=== PATIENT | female | born 1965 | race Caucasian/White ===

== ENCOUNTER 2017-06-11 18:34 | Inpatient (IN) | payer OTHER ==
[2017-06-11 21:34] LABS: ALANINE AMINOTRANSFERASE 83 IU/L (13-69); ALBUMIN 2.9 g/dl (3.3-4.9); ALKALINE PHOSPHATASE 205 IU/L (42-121); AMYLASE 41 U/L (11-123); ANION GAP 17 (8-16); ASPARTATE AMINO TRANSFERASE 101 IU/L (15-46); BLOOD UREA NITROGEN 20 mg/dl (7-20); CALCIUM 8.4 mg/dl (8.4-10.2); CARBON DIOXIDE 23 mmol/L (21-31); CHLORIDE 105 mmol/L (97-110); CREATININE 0.66 mg/dl (0.44-1.00); GLUCOSE 129 mg/dl (70-220); LIPASE 43 U/L (23-300); POTASSIUM 3.5 mmol/L (3.5-5.1); SODIUM 141 mmol/L (135-144); TOTAL PROTEIN 6.5 g/dl (6.1-8.1)
[2017-06-11 21:37] LABS: ABNORMAL IP MESSAGE 1; MEAN CORPUSCULAR HEMOGLOBIN 28.9 pg (29.0-33.0); MEAN CORPUSCULAR VOLUME 96.2 fl (82.0-101.0); MEAN PLATELET VOLUME 9.7 fl (7.4-10.4); NUCLEATED RED BLOOD CELLS% 0.2 /100WBC (0.0-0.0); PLATELET COUNT 443 10^3/UL (140-415); RED BLOOD COUNT 2.39 10^6/ul (4.20-5.40); RED CELL DISTRIBUTION WIDTH 16.9 % (11.5-14.5)
[2017-06-11 21:37] LABS: WHITE BLOOD COUNT 8.5 10^3/ul (4.8-10.8)
[2017-06-11 21:41] LABS: ADD MAN DIFF? YES; HEMOGLOBIN 6.9 g/dl (12.0-16.0); POSITIVE DIFF @See below
[2017-06-11 21:42] LABS: PATH REVIEW? YES
[2017-06-11 21:47] LABS: TROPONIN-I < 0.012 ng/ml (0.00-0.12)
[2017-06-11 21:53] LABS: INR 1.36; PT RATIO 1.3
[2017-06-11 21:54] LABS: PARTIAL THROMBOPLASTIN TIME 27.8 Sec (25.0-35.0)
[2017-06-11 22:02] LABS: LACTIC ACID 2.2 mmol/L (0.5-2.0)
[2017-06-11] MEDS ORDERED: SOD CHLORIDE 0.9% 1,000 ML IV (22:09)
[2017-06-11 22:21] LABS: BAND NEUTROPHILS #M 1.2 10^3/ul (0.0-0.6); BAND NEUTROPHILS % (M) 15 % (0-4); GIANT THROMBO% (M) 2 % (0-0); HYPOCHROMASIA 1+ (0-0); LYMPHOCYTES #M 0.5 10^3/ul (0.8-2.9); LYMPHOCYTES % (M) 6 % (15-51); MONOCYTE #M 0.1 10^3/ul (0.3-0.9); MONOCYTES % (M) 2 % (0-11); PLASMAC%(M) 1 % (0); PLATELET ESTIMATE NORMAL; SEG NEUT #M 6.6 10^3/ul (1.7-7.5); SEGMENTED NEUTROPHILS (M) % 76 % (39-77); SMUDGE%M 1 % (0-0)
[2017-06-11] MEDS: CEFEPIME 2GM/50 ML (PMX) 50 ML IVPB (22:24)
[2017-06-11] MEDS: SOD CHLORIDE 0.9% 1,000 ML IV (22:26)
[2017-06-11] MEDS: SODIUM CHLORIDE 0.9% 1L BAG IV* (22:26)
[2017-06-11] MEDS ORDERED: ONDANSETRON 4 MG INJ IV (22:30)
[2017-06-11] MEDS ORDERED: ACETAMINOPHEN 325 MG TAB PO (22:30)
[2017-06-11] MEDS ORDERED: NACL 0.9% 3 ML SYG IV (22:30)
[2017-06-11] MEDS: VANCOMYCIN 1 GM (PMX) 250 ML IVPB (22:49)
[2017-06-11] MEDS: HYDROCODONE/APAP (5/325) TAB PO (23:38)
[2017-06-12 09:47] LABS: LACTIC ACID 1.2 mmol/L (0.5-2.0)
[2017-06-12] MEDS ORDERED: morphine 4 MG/ML VIAL IV (11:30)
[2017-06-12] MEDS ORDERED: ONDANSETRON 4 MG INJ IV (11:30)
[2017-06-12] MEDS: DOCUSATE SODIUM 100 MG CAP PO ×2 (12:00→20:29)
[2017-06-12] MEDS: POLYETHYLENE GLYCOL 17 GM PACKET PO (12:00)
[2017-06-12] MEDS: SOD CHLORIDE 0.9% 1,000 ML IV (12:00)
[2017-06-12] MEDS: FUROSEMIDE 20 MG INJ IV (12:00)
[2017-06-12] MEDS: FAMOTIDINE 20 MG INJ IV ×2 (12:00→20:29)
[2017-06-12] MEDS: morphine (ER) 15 MG TAB PO ×2 (12:00→20:30)
[2017-06-12 12:01] LABS: MAGNESIUM 1.8 mg/dl (1.7-2.5)
[2017-06-12] MEDS: ALBUTEROL 0.083% (NEB) 2.5 MG/3 ML AMP HHN ×3 (13:04→19:11)
[2017-06-12 15:59] LABS: ADD MAN DIFF? NO
[2017-06-12 16:01] LABS: WHITE BLOOD COUNT 6.6 10^3/ul (4.8-10.8)
[2017-06-12 16:01] LABS: ABNORMAL IP MESSAGE 1; BASOPHILS % 0.2 % (0.0-2.0); EOSINOPHILS % 0.2 % (0.0-7.0); HEMATOCRIT 29.7 % (37.0-47.0); HEMOGLOBIN 9.2 g/dl (12.0-16.0); LYMPHOCYTES # 0.5 10^3/ul (0.8-2.9); LYMPHOCYTES % 7.7 % (15.0-51.0); MEAN CORPUSCULAR HEMOGLOBIN 28.3 pg (29.0-33.0); MEAN CORPUSCULAR VOLUME 91.4 fl (82.0-101.0); MEAN PLATELET VOLUME 9.7 fl (7.4-10.4); MONOCYTE # 0.2 10^3/ul (0.3-0.9); MONOCYTES % 2.9 % (0.0-11.0); NEUTROPHIL # 5.8 10^3/ul (1.6-7.5); NEUTROPHILS % 88.4 % (39.0-77.0); PLATELET COUNT 385 10^3/UL (140-415); RED BLOOD COUNT 3.25 10^6/ul (4.20-5.40); RED CELL DISTRIBUTION WIDTH 19.2 % (11.5-14.5)
[2017-06-12 16:02] LABS: POSITIVE DIFF @See below
[2017-06-12] MEDS: PIPER-TAZO 3.375 GM IV (PMX) 50 ML IVPB ×2 (16:16→22:19)
[2017-06-12 16:28] LABS: ALANINE AMINOTRANSFERASE 83 IU/L (13-69); ALBUMIN 3.1 g/dl (3.3-4.9); ALBUMIN/GLOBULIN RATIO 0.73; ALKALINE PHOSPHATASE 206 IU/L (42-121); ANION GAP 18 (8-16); ASPARTATE AMINO TRANSFERASE 136 IU/L (15-46); BILIRUBIN,INDIRECT 0.1 mg/dl (0-1.1); BILIRUBIN,TOTAL 0.1 mg/dl (0.2-1.3); BLOOD UREA NITROGEN 11 mg/dl (7-20); CALCIUM 8.6 mg/dl (8.4-10.2); CARBON DIOXIDE 19 mmol/L (21-31); CHLORIDE 113 mmol/L (97-110); CREATININE 0.56 mg/dl (0.44-1.00); GLUCOSE 147 mg/dl (70-220); POTASSIUM 3.2 mmol/L (3.5-5.1); SODIUM 147 mmol/L (135-144); TOTAL PROTEIN 7.3 g/dl (6.1-8.1)
[2017-06-12] MEDS: POTASSIUM CHLORIDE (SR) 20 MEQ TAB PO (20:29)
[2017-06-13] MEDS: SOD CHLORIDE 0.9% 1,000 ML IV ×3 (00:33→22:25)
[2017-06-13] MEDS: ALBUTEROL 0.083% (NEB) 2.5 MG/3 ML AMP HHN ×2 (01:19→07:57)
[2017-06-13 01:39] LABS: ADD UMIC YES; UR AMORPHOUS CRYSTAL FEW /HPF (NONE SEEN); UR ASCORBIC ACID NEGATIVE (NEGATIVE); UR BACTERIA FEW /HPF (NONE SEEN); UR BILIRUBIN (Dip) NEGATIVE (NEGATIVE); UR BLOOD (Dip) 3+ mg/dL (NEGATIVE); UR CLARITY CLOUDY (CLEAR); UR COLOR YELLOW (YELLOW); UR GLUCOSE (Dip) NEGATIVE (NEGATIVE); UR KETONES (Dip) NEGATIVE (NEGATIVE); UR LEUKOCYTE ESTERASE (Dip) 3+ Leu/ul (NEGATIVE); UR NITRITE (Dip) NEGATIVE (NEGATIVE); UR RBC > 182 /HPF (0-5); UR SPECIFIC GRAVITY (Dip) 1.014 (1.003-1.030); UR TOTAL PROTEIN (Dip) 2+ mg/dl (NEGATIVE); UR UROBILINOGEN (Dip) NEGATIVE (NEGATIVE); UR WBC 162 /HPF (0-5)
[2017-06-13] MEDS: PIPER-TAZO 3.375 GM IV (PMX) 50 ML IVPB ×3 (05:27→21:23)
[2017-06-13 06:32] LABS: ADD MAN DIFF? NO
[2017-06-13 06:36] LABS: ABNORMAL IP MESSAGE 1; BASOPHILS % 0.1 % (0.0-2.0); EOSINOPHILS # 0.1 10^3/ul (0.0-0.5); EOSINOPHILS % 1.2 % (0.0-7.0); HEMATOCRIT 23.1 % (37.0-47.0); HEMOGLOBIN 7.3 g/dl (12.0-16.0); LYMPHOCYTES # 0.6 10^3/ul (0.8-2.9); LYMPHOCYTES % 8.1 % (15.0-51.0); MEAN CORPUSCULAR HEMOGLOBIN 28.5 pg (29.0-33.0); MEAN CORPUSCULAR HGB CONC 31.6 g/dl (32.0-37.0); MEAN CORPUSCULAR VOLUME 90.2 fl (82.0-101.0); MEAN PLATELET VOLUME 10.7 fl (7.4-10.4); MONOCYTE # 0.3 10^3/ul (0.3-0.9); MONOCYTES % 4.5 % (0.0-11.0); NEUTROPHIL # 5.9 10^3/ul (1.6-7.5); NEUTROPHILS % 85.5 % (39.0-77.0); RED BLOOD COUNT 2.56 10^6/ul (4.20-5.40)
[2017-06-13 06:36] LABS: WHITE BLOOD COUNT 6.9 10^3/ul (4.8-10.8)
[2017-06-13 06:49] LABS: PLATELET COUNT 246 10^3/UL (140-415)
[2017-06-13 07:07] LABS: ALANINE AMINOTRANSFERASE 68 IU/L (13-69); ALBUMIN 2.6 g/dl (3.3-4.9); ALBUMIN/GLOBULIN RATIO 0.68; ALKALINE PHOSPHATASE 155 IU/L (42-121); ANION GAP 12 (8-16); ASPARTATE AMINO TRANSFERASE 75 IU/L (15-46); BILIRUBIN,INDIRECT 0.1 mg/dl (0-1.1); BILIRUBIN,TOTAL 0.1 mg/dl (0.2-1.3); BLOOD UREA NITROGEN 7 mg/dl (7-20); CALCIUM 8.2 mg/dl (8.4-10.2); CARBON DIOXIDE 20 mmol/L (21-31); CHLORIDE 115 mmol/L (97-110); CREATININE 0.53 mg/dl (0.44-1.00); GLUCOSE 111 mg/dl (70-220); POTASSIUM 3.1 mmol/L (3.5-5.1); SODIUM 144 mmol/L (135-144); TOTAL PROTEIN 6.4 g/dl (6.1-8.1)
[2017-06-13] MEDS: DOCUSATE SODIUM 100 MG CAP PO ×2 (09:15→21:20)
[2017-06-13] MEDS: POLYETHYLENE GLYCOL 17 GM PACKET PO (09:16)
[2017-06-13] MEDS: morphine (ER) 15 MG TAB PO ×2 (09:16→21:00)
[2017-06-13] MEDS: FAMOTIDINE 20 MG INJ IV ×2 (09:16→21:20)
[2017-06-13] MEDS ORDERED: POTASSIUM CHLORIDE 30 MEQ in SOD CHLORIDE 0.9% 150 ML IVPB (09:30)
[2017-06-13] MEDS: POTASSIUM CHLORIDE 50 ML IVPB ×3 (11:26→20:09)
[2017-06-13 14:44] LABS: RETICULOCYTE RBC 2.63
[2017-06-13 14:44] LABS: RETICULOCYTE COUNT # 0.022 X10^6 (0.020-0.110); RETICULOCYTE COUNT % 0.8 % (0.5-1.5)
[2017-06-13 15:15] LABS: LACTATE DEHYDROGENASE 814 IU/L (313-618)
[2017-06-13 15:23] LABS: TOTAL IRON BINDING CAPACITY 143 ug/dl (241-421)
[2017-06-13 15:49] LABS: IRON < 10 ug/dl (35-150)
[2017-06-13 16:48] LABS: FOLATE 17.4 ng/ml (2.8-20.0)
[2017-06-13] MEDS: LIDOCAINE 1% (MPF) 5 ML VIAL SC (17:38)
[2017-06-13] MEDS: BENZONATATE 100 MG CAP PO (21:25)
[2017-06-13 22:26] LABS: IMMEDIATE SPIN CROSSMATCH 1 3
[2017-06-14] MEDS: PIPER-TAZO 3.375 GM IV (PMX) 50 ML IVPB ×3 (05:40→23:01)
[2017-06-14] MEDS: ALBUTEROL 0.083% (NEB) 2.5 MG/3 ML AMP HHN (06:14)
[2017-06-14 06:42] LABS: ADD MAN DIFF? NO
[2017-06-14 06:53] LABS: WHITE BLOOD COUNT 9.3 10^3/ul (4.8-10.8)
[2017-06-14 06:53] LABS: ABNORMAL IP MESSAGE 1; BASOPHILS % 0.1 % (0.0-2.0); EOSINOPHILS % 0.4 % (0.0-7.0); HEMATOCRIT 26.6 % (37.0-47.0); HEMOGLOBIN 8.7 g/dl (12.0-16.0); LYMPHOCYTES # 0.5 10^3/ul (0.8-2.9); LYMPHOCYTES % 5.4 % (15.0-51.0); MEAN CORPUSCULAR HGB CONC 32.7 g/dl (32.0-37.0); MEAN CORPUSCULAR VOLUME 88.7 fl (82.0-101.0); MEAN PLATELET VOLUME 9.3 fl (7.4-10.4); MONOCYTE # 0.5 10^3/ul (0.3-0.9); MONOCYTES % 5.2 % (0.0-11.0); NEUTROPHIL # 8.2 10^3/ul (1.6-7.5); NEUTROPHILS % 88.1 % (39.0-77.0); PLATELET COUNT 332 10^3/UL (140-415); RED CELL DISTRIBUTION WIDTH 17.2 % (11.5-14.5)
[2017-06-14 07:11] LABS: ALANINE AMINOTRANSFERASE 56 IU/L (13-69); ALBUMIN 2.5 g/dl (3.3-4.9); ALBUMIN/GLOBULIN RATIO 0.71; ALKALINE PHOSPHATASE 186 IU/L (42-121); ANION GAP 11 (8-16); ASPARTATE AMINO TRANSFERASE 50 IU/L (15-46); BILIRUBIN,INDIRECT 0.3 mg/dl (0-1.1); BILIRUBIN,TOTAL 0.3 mg/dl (0.2-1.3); BLOOD UREA NITROGEN 4 mg/dl (7-20); CALCIUM 8.4 mg/dl (8.4-10.2); CARBON DIOXIDE 21 mmol/L (21-31); CHLORIDE 115 mmol/L (97-110); GLUCOSE 108 mg/dl (70-220); SODIUM 144 mmol/L (135-144)
[2017-06-14 07:12] LABS: POSITIVE DIFF @See below
[2017-06-14 07:18] LABS: POTASSIUM 2.5 mmol/L (3.5-5.1)
[2017-06-14] MEDS: morphine (ER) 15 MG TAB PO ×2 (09:00→20:32)
[2017-06-14] MEDS: DOCUSATE SODIUM 100 MG CAP PO ×2 (10:11→20:31)
[2017-06-14] MEDS: FAMOTIDINE 20 MG INJ IV ×2 (10:11→20:31)
[2017-06-14] MEDS: POTASSIUM CHLORIDE 50 ML IVPB ×4 (10:11→15:47)
[2017-06-14] MEDS: POTASSIUM CHLORIDE (SR) 20 MEQ TAB PO (10:12)
[2017-06-14] MEDS: POLYETHYLENE GLYCOL 17 GM PACKET PO (10:12)
[2017-06-14] MEDS: BENZONATATE 100 MG CAP PO ×3 (10:12→20:32)
[2017-06-14] MEDS: BALSAM PERU/CASTOR OIL 60 GM TUBE TOP (10:13)
[2017-06-14] MEDS: SOD CHLORIDE 0.9% 1,000 ML IV ×2 (11:28→23:09)
[2017-06-14 12:32] LABS: MAGNESIUM 1.4 mg/dl (1.7-2.5)
[2017-06-14] MEDS: FLUCONAZOLE 100 MG TAB PO (15:02)
[2017-06-14] MEDS: traMADol 50 MG TAB PO (15:04)
[2017-06-14] MEDS: ATENOLOL 25 MG TAB PO ×2 (15:04→23:07)
[2017-06-14] MEDS ORDERED: LEVALBUTEROL (NEB) 0.31 MG/3 ML AMP (15:19)
[2017-06-14] MEDS: LEVALBUTEROL (NEB) 0.31 MG/3 ML AMP HHN ×2 (15:20→20:53)
[2017-06-14] MEDS: SOD CHLORIDE 0.9% 100 ML (16:18)
[2017-06-14] MEDS: NYSTATIN SUSP 5 ML CUP PO ×2 (17:07→20:30)
[2017-06-15] MEDS: LEVALBUTEROL (NEB) 0.31 MG/3 ML AMP HHN ×3 (01:18→20:41)
[2017-06-15] MEDS: PIPER-TAZO 3.375 GM IV (PMX) 50 ML IVPB ×3 (06:10→21:07)
[2017-06-15 08:07] LABS: WHITE BLOOD COUNT 6.3 10^3/ul (4.8-10.8)
[2017-06-15 08:07] LABS: ABNORMAL IP MESSAGE 1; ADD MAN DIFF? YES; HEMATOCRIT 37.9 % (37.0-47.0); HEMOGLOBIN 11.7 g/dl (12.0-16.0); MEAN CORPUSCULAR HGB CONC 30.9 g/dl (32.0-37.0); MEAN CORPUSCULAR VOLUME 90.7 fl (82.0-101.0); MEAN PLATELET VOLUME 9.3 fl (7.4-10.4); PLATELET COUNT 269 10^3/UL (140-415); POSITIVE DIFF @See below; RED BLOOD COUNT 4.18 10^6/ul (4.20-5.40); RED CELL DISTRIBUTION WIDTH 17.5 % (11.5-14.5)
[2017-06-15 08:41] LABS: ANION GAP 11 (8-16); BLOOD UREA NITROGEN 4 mg/dl (7-20); CALCIUM 8.2 mg/dl (8.4-10.2); CARBON DIOXIDE 20 mmol/L (21-31); CHLORIDE 115 mmol/L (97-110); GLUCOSE 93 mg/dl (70-220); SODIUM 143 mmol/L (135-144)
[2017-06-15 08:46] LABS: POTASSIUM 2.8 mmol/L (3.5-5.1)
[2017-06-15] MEDS: morphine (ER) 15 MG TAB PO ×2 (09:00→21:06)
[2017-06-15] MEDS: NYSTATIN SUSP 5 ML CUP PO ×4 (09:20→21:06)
[2017-06-15] MEDS: POLYETHYLENE GLYCOL 17 GM PACKET PO (09:20)
[2017-06-15] MEDS: ATENOLOL 25 MG TAB PO ×2 (09:21→21:07)
[2017-06-15] MEDS: FAMOTIDINE 20 MG INJ IV ×2 (09:24→21:06)
[2017-06-15] MEDS: FLUCONAZOLE 100 MG TAB PO (09:24)
[2017-06-15] MEDS: BALSAM PERU/CASTOR OIL 60 GM TUBE TOP (09:24)
[2017-06-15] MEDS: BENZONATATE 100 MG CAP PO ×3 (09:24→21:05)
[2017-06-15] MEDS: DOCUSATE SODIUM 100 MG CAP PO ×2 (09:24→21:05)
[2017-06-15] MEDS: ACETAMINOPHEN 325 MG TAB PO (09:27)
[2017-06-15 09:28] LABS: ANISOCYTOSIS 1+ (0-0); BAND NEUTROPHILS #M 0.3 10^3/ul (0.0-0.6); BAND NEUTROPHILS % (M) 5 % (0-4); BURR CELLS 1+ (0-0); LYMPHOCYTES #M 0.4 10^3/ul (0.8-2.9); LYMPHOCYTES % (M) 7 % (15-51); MONOCYTE #M 0.1 10^3/ul (0.3-0.9); MONOCYTES % (M) 3 % (0-11); PLATELET ESTIMATE NORMAL; POIKILOCYTOSIS 1+ (0-0); SEG NEUT #M 5.4 10^3/ul (1.7-7.5); SEGMENTED NEUTROPHILS (M) % 85 % (39-77)
[2017-06-15] MEDS: POTASSIUM CHLORIDE 50 ML IVPB ×4 (11:26→15:44)
[2017-06-15] MEDS: POTASSIUM CHLORIDE (SR) 20 MEQ TAB PO (11:27)
[2017-06-15] MEDS: SOD CHLORIDE 0.9% 1,000 ML IV (13:39)
[2017-06-15] MEDS: FOSFOMYCIN 3 GM PACKET PO (13:39)
[2017-06-15] MEDS: traMADol 50 MG TAB PO (15:47)
[2017-06-15 16:33] LABS: HAPTOGLOBIN 624 mg/dL (43-212)
[2017-06-15] MEDS: MAGNESIUM SULFATE 2 GM/50 ML 50 ML IVPB (16:35)
[2017-06-15] MEDS: FUROSEMIDE 20 MG INJ IV (18:22)
[2017-06-15] MEDS: SOD FERRIC GLUC COMPLX 125 MG in SOD CHLORIDE 0.9% 100 ML IVPB (18:29)
[2017-06-15] MEDS: POTASSIUM CHLORIDE 20 MEQ POWDER FOR ORAL SOLN PO (18:30)
[2017-06-15] MEDS: GUAIFENESIN/DM 5ML CUP PO (18:38)
[2017-06-15 18:50] LABS: ANION GAP 10 (8-16); BLOOD UREA NITROGEN 5 mg/dl (7-20); CALCIUM 8.5 mg/dl (8.4-10.2); CARBON DIOXIDE 19 mmol/L (21-31); CHLORIDE 116 mmol/L (97-110); CREATININE 0.53 mg/dl (0.44-1.00); GLUCOSE 105 mg/dl (70-220); POTASSIUM 4.4 mmol/L (3.5-5.1); SODIUM 141 mmol/L (135-144)
[2017-06-15] MEDS ORDERED: POTASSIUM CHLORIDE (SR) 20 MEQ TAB PO (19:00)
[2017-06-16] MEDS: LEVALBUTEROL (NEB) 0.31 MG/3 ML AMP HHN ×6 (01:00→21:28)
[2017-06-16] MEDS: FUROSEMIDE 20 MG INJ IV ×2 (06:10→17:17)
[2017-06-16] MEDS: SOD CHLORIDE 0.9% 1,000 ML IV (06:10)
[2017-06-16] MEDS: PIPER-TAZO 3.375 GM IV (PMX) 50 ML IVPB (06:10)
[2017-06-16 06:32] LABS: ADD MAN DIFF? NO
[2017-06-16 06:45] LABS: WHITE BLOOD COUNT 8.3 10^3/ul (4.8-10.8)
[2017-06-16 06:45] LABS: BASOPHILS % 0.1 % (0.0-2.0); EOSINOPHILS # 0.1 10^3/ul (0.0-0.5); EOSINOPHILS % 0.8 % (0.0-7.0); HEMATOCRIT 28.7 % (37.0-47.0); LYMPHOCYTES # 0.7 10^3/ul (0.8-2.9); LYMPHOCYTES % 8.8 % (15.0-51.0); MEAN CORPUSCULAR HGB CONC 31.4 g/dl (32.0-37.0); MEAN CORPUSCULAR VOLUME 92.6 fl (82.0-101.0); MEAN PLATELET VOLUME 10.2 fl (7.4-10.4); MONOCYTE # 0.4 10^3/ul (0.3-0.9); MONOCYTES % 5.1 % (0.0-11.0); NEUTROPHIL # 7.1 10^3/ul (1.6-7.5); NEUTROPHILS % 84.8 % (39.0-77.0); PLATELET COUNT 314 10^3/UL (140-415)
[2017-06-16 06:50] LABS: POSITIVE DIFF @See below
[2017-06-16] MEDS: morphine (ER) 15 MG TAB PO ×2 (08:47→20:25)
[2017-06-16] MEDS: FLUCONAZOLE 100 MG TAB PO (08:56)
[2017-06-16] MEDS: ATENOLOL 25 MG TAB PO (08:56)
[2017-06-16] MEDS: NYSTATIN SUSP 5 ML CUP PO ×4 (08:56→20:25)
[2017-06-16] MEDS: POLYETHYLENE GLYCOL 17 GM PACKET PO (08:56)
[2017-06-16] MEDS: BENZONATATE 100 MG CAP PO ×3 (08:56→20:24)
[2017-06-16] MEDS: DOCUSATE SODIUM 100 MG CAP PO ×2 (08:57→20:24)
[2017-06-16] MEDS: FAMOTIDINE 20 MG INJ IV (08:57)
[2017-06-16] MEDS: BALSAM PERU/CASTOR OIL 60 GM TUBE TOP (08:57)
[2017-06-16] MEDS: ENOXAPARIN 40 MG/0.4 ML SYG SC (09:17)
[2017-06-16] MEDS: traMADol 50 MG TAB PO ×2 (09:24→16:13)
[2017-06-16] MEDS: ZYVOX 600 MG TAB PO (14:34)
[2017-06-16] MEDS: LEVOFLOXACIN 500 MG TAB PO (14:34)
[2017-06-16] MEDS: BARIUM SULF 2% 450 ML BTL (BERRY SMOOTHIE) PO (16:14)
[2017-06-16] MEDS: SOD FERRIC GLUC COMPLX 125 MG in SOD CHLORIDE 0.9% 100 ML IVPB (17:17)
[2017-06-16] MEDS: ACETAMINOPHEN 325 MG TAB PO (20:24)
[2017-06-16] MEDS: GUAIFENESIN/DM 5ML CUP PO (20:25)
[2017-06-17] MEDS: ZYVOX 600 MG TAB PO ×3 (00:03→21:40)
[2017-06-17] MEDS: LEVALBUTEROL (NEB) 0.31 MG/3 ML AMP HHN ×6 (01:00→20:03)
[2017-06-17] MEDS: LEVOFLOXACIN 500 MG TAB PO (05:26)
[2017-06-17] MEDS: FUROSEMIDE 20 MG INJ IV ×2 (05:26→17:45)
[2017-06-17] MEDS: morphine (ER) 15 MG TAB PO ×2 (08:47→21:00)
[2017-06-17] MEDS: BALSAM PERU/CASTOR OIL 60 GM TUBE TOP (08:49)
[2017-06-17] MEDS: BENZONATATE 100 MG CAP PO ×3 (08:50→21:40)
[2017-06-17] MEDS: DOCUSATE SODIUM 100 MG CAP PO ×3 (08:50→21:40)
[2017-06-17] MEDS: NYSTATIN SUSP 5 ML CUP PO ×4 (08:50→21:41)
[2017-06-17] MEDS: POLYETHYLENE GLYCOL 17 GM PACKET PO (08:50)
[2017-06-17] MEDS: ENOXAPARIN 40 MG/0.4 ML SYG SC (09:13)
[2017-06-17] MEDS ORDERED: ACETAMINOPHEN 325 MG TAB PO (13:00)
[2017-06-17] MEDS ORDERED: ZOLPIDEM 5 MG TAB PO (13:00)
[2017-06-17] MEDS: LORAZEPAM 0.5 MG TAB PO ×2 (13:24→21:40)
[2017-06-17] MEDS: ATENOLOL 25 MG TAB PO ×2 (13:25→21:42)
[2017-06-17] MEDS: SOD CHLORIDE 0.9% 100 ML (16:02)
[2017-06-17] MEDS: IODIXANOL LOCM 100 ML BTL (16:03)
[2017-06-17] MEDS: SOD FERRIC GLUC COMPLX 125 MG in SOD CHLORIDE 0.9% 100 ML IVPB (17:45)
[2017-06-17] MEDS: traMADol 50 MG TAB PO (18:57)
[2017-06-17] MEDS ORDERED: MIRTAZAPINE 15 MG TAB PO (21:00)
[2017-06-17] MEDS ORDERED: ENOXAPARIN 40 MG/0.4 ML SYG SC (21:00)
[2017-06-18] MEDS: LEVALBUTEROL (NEB) 0.31 MG/3 ML AMP HHN ×6 (00:23→20:06)
[2017-06-18] MEDS: traMADol 50 MG TAB PO (05:58)
[2017-06-18] MEDS: LEVOFLOXACIN 500 MG TAB PO (05:58)
[2017-06-18] MEDS: FUROSEMIDE 20 MG INJ IV ×2 (06:01→17:33)
[2017-06-18] MEDS: LORAZEPAM 0.5 MG TAB PO ×3 (06:05→21:58)
[2017-06-18] MEDS: morphine (ER) 15 MG TAB PO ×2 (09:00→21:00)
[2017-06-18] MEDS: ATENOLOL 25 MG TAB PO ×2 (09:00→21:00)
[2017-06-18] MEDS: DOCUSATE SODIUM 100 MG CAP PO ×4 (09:00→21:00)
[2017-06-18] MEDS: NYSTATIN SUSP 5 ML CUP PO ×4 (09:20→21:00)
[2017-06-18] MEDS: ENOXAPARIN 40 MG/0.4 ML SYG SC (09:22)
[2017-06-18] MEDS: POLYETHYLENE GLYCOL 17 GM PACKET PO (09:22)
[2017-06-18] MEDS: BENZONATATE 100 MG CAP PO ×3 (09:23→21:00)
[2017-06-18] MEDS: ZYVOX 600 MG TAB PO ×2 (09:24→21:00)
[2017-06-18] MEDS: BISACODYL (EC) 5 MG TAB PO (09:25)
[2017-06-18] MEDS: PANTOPRAZOLE (EC) 40 MG TAB PO (09:25)
[2017-06-18] MEDS: ASPIRIN (EC) 81 MG TAB PO (09:25)
[2017-06-18] MEDS: BALSAM PERU/CASTOR OIL 60 GM TUBE TOP (13:48)
[2017-06-18] MEDS: DEXTROSE 5%-0.45% NACL 1,000 ML IV (18:15)
[2017-06-19] MEDS: LEVALBUTEROL (NEB) 0.31 MG/3 ML AMP HHN ×6 (00:16→20:12)
[2017-06-19] MEDS: DEXTROSE 5%-0.45% NACL 1,000 ML IV ×3 (03:51→21:47)
[2017-06-19] MEDS: LEVOFLOXACIN 500 MG TAB PO (05:41)
[2017-06-19] MEDS: LORAZEPAM 0.5 MG TAB PO ×3 (05:41→21:46)
[2017-06-19] MEDS: FUROSEMIDE 20 MG INJ IV ×2 (05:43→18:42)
[2017-06-19 05:49] LABS: ADD MAN DIFF? NO
[2017-06-19 06:04] LABS: BASOPHILS % 0.1 % (0.0-2.0); EOSINOPHILS # 0.1 10^3/ul (0.0-0.5); EOSINOPHILS % 0.9 % (0.0-7.0); HEMATOCRIT 27.3 % (37.0-47.0); HEMOGLOBIN 8.6 g/dl (12.0-16.0); LYMPHOCYTES # 0.7 10^3/ul (0.8-2.9); MEAN CORPUSCULAR HGB CONC 31.5 g/dl (32.0-37.0); MEAN CORPUSCULAR VOLUME 91.9 fl (82.0-101.0); MEAN PLATELET VOLUME 9.4 fl (7.4-10.4); MONOCYTE # 0.6 10^3/ul (0.3-0.9); MONOCYTES % 6.5 % (0.0-11.0); NEUTROPHIL # 7.1 10^3/ul (1.6-7.5); NEUTROPHILS % 83.7 % (39.0-77.0); PLATELET COUNT 303 10^3/UL (140-415); RED BLOOD COUNT 2.97 10^6/ul (4.20-5.40)
[2017-06-19 06:04] LABS: WHITE BLOOD COUNT 8.5 10^3/ul (4.8-10.8)
[2017-06-19 06:53] LABS: ANION GAP 11 (8-16); BLOOD UREA NITROGEN 9 mg/dl (7-20); CALCIUM 9.5 mg/dl (8.4-10.2); CARBON DIOXIDE 21 mmol/L (21-31); CHLORIDE 108 mmol/L (97-110); CREATININE 0.62 mg/dl (0.44-1.00); GLUCOSE 123 mg/dl (70-220); SODIUM 137 mmol/L (135-144)
[2017-06-19 06:59] LABS: POTASSIUM 2.7 mmol/L (3.5-5.1)
[2017-06-19] MEDS: BENZONATATE 100 MG CAP PO ×3 (09:00→21:00)
[2017-06-19] MEDS: ZYVOX 600 MG TAB PO ×2 (09:00→21:00)
[2017-06-19] MEDS: PANTOPRAZOLE (EC) 40 MG TAB PO (09:00)
[2017-06-19] MEDS: DOCUSATE SODIUM 100 MG CAP PO ×3 (09:00→21:00)
[2017-06-19] MEDS: ASPIRIN (EC) 81 MG TAB PO (09:00)
[2017-06-19] MEDS: NYSTATIN SUSP 5 ML CUP PO ×4 (09:00→21:00)
[2017-06-19] MEDS: morphine (ER) 15 MG TAB PO ×2 (09:00→21:00)
[2017-06-19] MEDS: POLYETHYLENE GLYCOL 17 GM PACKET PO (09:00)
[2017-06-19] MEDS: ATENOLOL 25 MG TAB PO ×2 (09:00→21:47)
[2017-06-19] MEDS: BISACODYL (EC) 5 MG TAB PO (09:00)
[2017-06-19] MEDS: POTASSIUM CHLORIDE 50 ML IVPB ×4 (10:21→17:33)
[2017-06-19] MEDS: ENOXAPARIN 40 MG/0.4 ML SYG SC (10:24)
[2017-06-19] MEDS ORDERED: FLUCONAZOLE 100 MG/NS (PMX) 50 ML IVPB (16:00)
[2017-06-19] MEDS: FLUCONAZOLE 100 MG/NS (PMX) 50 ML IVPB (17:39)
[2017-06-19] MEDS: BALSAM PERU/CASTOR OIL 60 GM TUBE TOP (20:56)
[2017-06-19] MEDS: MEROPENEM 500MG/50 ML (PMX) 50 ML IVPB (21:46)
[2017-06-20] MEDS: LEVALBUTEROL (NEB) 0.31 MG/3 ML AMP HHN ×6 (01:16→20:46)
[2017-06-20] MEDS: LORAZEPAM 0.5 MG TAB PO ×3 (05:42→22:35)
[2017-06-20] MEDS: MEROPENEM 500MG/50 ML (PMX) 50 ML IVPB ×3 (05:43→22:35)
[2017-06-20] MEDS: FUROSEMIDE 20 MG INJ IV ×2 (05:45→18:17)
[2017-06-20] MEDS: morphine (ER) 15 MG TAB PO ×2 (09:00→21:00)
[2017-06-20] MEDS: POLYETHYLENE GLYCOL 17 GM PACKET PO (09:00)
[2017-06-20] MEDS: DOCUSATE SODIUM 100 MG CAP PO ×2 (10:13→20:59)
[2017-06-20] MEDS: OXYCODONE/ACETAMINOPHEN (5/325) TAB PO (10:14)
[2017-06-20] MEDS: BENZONATATE 100 MG CAP PO ×3 (10:15→21:00)
[2017-06-20] MEDS: ASPIRIN (EC) 81 MG TAB PO (10:15)
[2017-06-20] MEDS: PANTOPRAZOLE (EC) 40 MG TAB PO (10:16)
[2017-06-20] MEDS: ZYVOX 600 MG TAB PO ×2 (10:16→21:00)
[2017-06-20] MEDS: BISACODYL (EC) 5 MG TAB PO (10:18)
[2017-06-20] MEDS: NYSTATIN SUSP 5 ML CUP PO ×4 (10:18→20:59)
[2017-06-20] MEDS: ATENOLOL 25 MG TAB PO ×2 (10:18→20:59)
[2017-06-20] MEDS: ENOXAPARIN 40 MG/0.4 ML SYG SC (10:42)
[2017-06-20] MEDS: POTASSIUM CHLORIDE (SR) 20 MEQ TAB PO (10:56)
[2017-06-20] MEDS: DEXTROSE 5%-0.45% NACL 1,000 ML IV ×3 (10:57→20:00)
[2017-06-20] MEDS: BALSAM PERU/CASTOR OIL 60 GM TUBE TOP (16:00)
[2017-06-20] MEDS: FLUCONAZOLE 100 MG/NS (PMX) 50 ML IVPB (17:31)
[2017-06-20] MEDS: GUAIFENESIN/DM 5ML CUP PO (18:21)
[2017-06-21] MEDS: LEVALBUTEROL (NEB) 0.31 MG/3 ML AMP HHN ×6 (00:18→20:29)
[2017-06-21] MEDS: DEXTROSE 5%-0.45% NACL 1,000 ML IV ×4 (00:32→16:00)
[2017-06-21] MEDS: FUROSEMIDE 20 MG INJ IV ×2 (05:36→18:38)
[2017-06-21] MEDS: LORAZEPAM 0.5 MG TAB PO ×3 (05:37→22:20)
[2017-06-21] MEDS: MEROPENEM 500MG/50 ML (PMX) 50 ML IVPB ×3 (05:37→22:20)
[2017-06-21 08:45] LABS: ANION GAP 14 (8-16); BLOOD UREA NITROGEN 4 mg/dl (7-20); CALCIUM 9.5 mg/dl (8.4-10.2); CARBON DIOXIDE 23 mmol/L (21-31); CHLORIDE 104 mmol/L (97-110); CREATININE 0.49 mg/dl (0.44-1.00); GLUCOSE 132 mg/dl (70-220); MAGNESIUM 1.3 mg/dl (1.7-2.5); POTASSIUM 3.5 mmol/L (3.5-5.1); SODIUM 137 mmol/L (135-144)
[2017-06-21] MEDS: POLYETHYLENE GLYCOL 17 GM PACKET PO ×2 (09:00→09:27)
[2017-06-21] MEDS: NYSTATIN SUSP 5 ML CUP PO ×4 (09:27→21:10)
[2017-06-21] MEDS: PANTOPRAZOLE (EC) 40 MG TAB PO (09:28)
[2017-06-21] MEDS: DOCUSATE SODIUM 100 MG CAP PO ×2 (09:28→20:36)
[2017-06-21] MEDS: ZYVOX 600 MG TAB PO (09:28)
[2017-06-21] MEDS: ASPIRIN (EC) 81 MG TAB PO (09:28)
[2017-06-21] MEDS: morphine (ER) 15 MG TAB PO ×2 (09:28→21:00)
[2017-06-21] MEDS: BISACODYL (EC) 5 MG TAB PO (09:29)
[2017-06-21] MEDS: ATENOLOL 25 MG TAB PO ×2 (09:29→20:44)
[2017-06-21] MEDS: BENZONATATE 100 MG CAP PO ×3 (09:29→21:10)
[2017-06-21] MEDS: BALSAM PERU/CASTOR OIL 60 GM TUBE TOP (09:30)
[2017-06-21] MEDS: ENOXAPARIN 40 MG/0.4 ML SYG SC (09:31)
[2017-06-21] MEDS: GUAIFENESIN/DM 5ML CUP PO ×2 (13:58→18:37)
[2017-06-21] MEDS ORDERED: VANCOMYCIN IV PER PHARMACY XX (14:30)
[2017-06-21] MEDS: MAGNESIUM SULFATE 4 GM/100 ML 100 ML IVPB (15:43)
[2017-06-21] MEDS: FLUCONAZOLE 100 MG/NS (PMX) 50 ML IVPB (17:17)
[2017-06-21] MEDS: VANCOMYCIN 1.25 GM in SODIUM CHLORIDE 0.45 % 250 ML IVPB (17:18)
[2017-06-21] MEDS: traMADol 50 MG TAB PO (21:15)
[2017-06-22] MEDS: LEVALBUTEROL (NEB) 0.31 MG/3 ML AMP HHN ×6 (00:25→20:28)
[2017-06-22] MEDS: DEXTROSE 5%-0.45% NACL 1,000 ML IV ×4 (01:18→20:56)
[2017-06-22] MEDS: VANCOMYCIN 750 MG in DEXTROSE 5% 150 ML IVPB ×2 (03:42→16:34)
[2017-06-22] MEDS: LORAZEPAM 0.5 MG TAB PO ×4 (06:18→23:26)
[2017-06-22] MEDS: MEROPENEM 500MG/50 ML (PMX) 50 ML IVPB ×2 (06:18→13:32)
[2017-06-22] MEDS: FUROSEMIDE 20 MG INJ IV ×2 (06:25→18:00)
[2017-06-22 06:45] LABS: ANION GAP 12 (8-16); BLOOD UREA NITROGEN 4 mg/dl (7-20); CALCIUM 8.2 mg/dl (8.4-10.2); CARBON DIOXIDE 23 mmol/L (21-31); CHLORIDE 103 mmol/L (97-110); GLUCOSE 112 mg/dl (70-220); MAGNESIUM 2.2 mg/dl (1.7-2.5); SODIUM 135 mmol/L (135-144)
[2017-06-22 06:46] LABS: POTASSIUM 2.6 mmol/L (3.5-5.1)
[2017-06-22] MEDS: BISACODYL (EC) 5 MG TAB PO (09:00)
[2017-06-22] MEDS: DOCUSATE SODIUM 100 MG CAP PO ×2 (09:00→20:53)
[2017-06-22] MEDS: POLYETHYLENE GLYCOL 17 GM PACKET PO (09:00)
[2017-06-22] MEDS: ASPIRIN (EC) 81 MG TAB PO (09:20)
[2017-06-22] MEDS: BENZONATATE 100 MG CAP PO ×3 (09:20→20:53)
[2017-06-22] MEDS: NYSTATIN SUSP 5 ML CUP PO ×4 (09:20→20:53)
[2017-06-22] MEDS: POTASSIUM CHLORIDE (SR) 20 MEQ TAB PO ×3 (09:21→16:29)
[2017-06-22] MEDS: PANTOPRAZOLE (EC) 40 MG TAB PO (09:22)
[2017-06-22] MEDS: ATENOLOL 25 MG TAB PO ×2 (09:23→20:54)
[2017-06-22] MEDS: BALSAM PERU/CASTOR OIL 60 GM TUBE TOP (09:28)
[2017-06-22] MEDS: ENOXAPARIN 40 MG/0.4 ML SYG SC (09:31)
[2017-06-22] MEDS: morphine (ER) 15 MG TAB PO ×2 (09:37→20:53)
[2017-06-22] MEDS: GUAIFENESIN/DM 5ML CUP PO (12:58)
[2017-06-22] MEDS: OXYCODONE/ACETAMINOPHEN (5/325) TAB PO (13:31)
[2017-06-22] MEDS ORDERED: VANCOMYCIN IV PER PHARMACY XX (17:30)
[2017-06-22] MEDS: FLUCONAZOLE 100 MG/NS (PMX) 50 ML IVPB (18:06)
[2017-06-22] MEDS ORDERED: LINEZOLID 600 MG/D5W (PMX) 300 ML IVPB (21:00)
[2017-06-23] MEDS: LEVALBUTEROL (NEB) 0.31 MG/3 ML AMP HHN ×6 (00:25→20:24)
[2017-06-23 03:58] LABS: ANION GAP 9 (8-16); BLOOD UREA NITROGEN 3 mg/dl (7-20); CALCIUM 8.7 mg/dl (8.4-10.2); CARBON DIOXIDE 22 mmol/L (21-31); CHLORIDE 109 mmol/L (97-110); CREATININE 0.41 mg/dl (0.44-1.00); GLUCOSE 125 mg/dl (70-220); MAGNESIUM 1.8 mg/dl (1.7-2.5); POTASSIUM 4.2 mmol/L (3.5-5.1); SODIUM 136 mmol/L (135-144)
[2017-06-23 04:02] LABS: VANCOMYCIN,TROUGH 12.2 ug/ml (10.0-20.0)
[2017-06-23] MEDS: VANCOMYCIN 750 MG in DEXTROSE 5% 150 ML IVPB ×2 (04:46→16:37)
[2017-06-23] MEDS: LORAZEPAM 0.5 MG TAB PO ×3 (06:00→22:53)
[2017-06-23] MEDS: FUROSEMIDE 20 MG INJ IV ×2 (06:03→17:35)
[2017-06-23] MEDS: BENZONATATE 100 MG CAP PO ×3 (09:00→20:49)
[2017-06-23] MEDS: POLYETHYLENE GLYCOL 17 GM PACKET PO (10:03)
[2017-06-23] MEDS: PANTOPRAZOLE (EC) 40 MG TAB PO (10:04)
[2017-06-23] MEDS: ENOXAPARIN 40 MG/0.4 ML SYG SC (10:04)
[2017-06-23] MEDS: ATENOLOL 25 MG TAB PO ×2 (10:05→20:54)
[2017-06-23] MEDS: DOCUSATE SODIUM 100 MG CAP PO ×2 (10:05→21:00)
[2017-06-23] MEDS: ASPIRIN (EC) 81 MG TAB PO (10:05)
[2017-06-23] MEDS: BISACODYL (EC) 5 MG TAB PO (10:05)
[2017-06-23] MEDS: DEXTROSE 5%-0.45% NACL 1,000 ML IV ×2 (10:06→17:38)
[2017-06-23] MEDS: BALSAM PERU/CASTOR OIL 60 GM TUBE TOP (10:06)
[2017-06-23] MEDS: NYSTATIN SUSP 5 ML CUP PO ×4 (10:11→20:46)
[2017-06-23] MEDS: morphine (ER) 15 MG TAB PO ×2 (10:12→20:46)
[2017-06-23] MEDS: FLUCONAZOLE 100 MG/NS (PMX) 50 ML IVPB (17:38)
[2017-06-23] MEDS: GUAIFENESIN/DM 5ML CUP PO (22:53)
[2017-06-24] MEDS: LEVALBUTEROL (NEB) 0.31 MG/3 ML AMP HHN ×6 (00:43→21:00)
[2017-06-24] MEDS: DEXTROSE 5%-0.45% NACL 1,000 ML IV ×3 (03:20→16:53)
[2017-06-24] MEDS: VANCOMYCIN 750 MG in DEXTROSE 5% 150 ML IVPB ×2 (04:04→16:53)
[2017-06-24] MEDS: LORAZEPAM 0.5 MG TAB PO ×3 (06:09→21:12)
[2017-06-24] MEDS: FUROSEMIDE 20 MG INJ IV ×2 (06:09→17:48)
[2017-06-24] MEDS: morphine (ER) 15 MG TAB PO ×2 (08:52→21:00)
[2017-06-24] MEDS: POLYETHYLENE GLYCOL 17 GM PACKET PO (08:52)
[2017-06-24] MEDS: NYSTATIN SUSP 5 ML CUP PO ×4 (08:52→21:04)
[2017-06-24] MEDS: BENZONATATE 100 MG CAP PO ×3 (08:53→21:12)
[2017-06-24] MEDS: ATENOLOL 25 MG TAB PO ×2 (08:53→21:00)
[2017-06-24] MEDS: BISACODYL (EC) 5 MG TAB PO (08:53)
[2017-06-24] MEDS: ASPIRIN (EC) 81 MG TAB PO (08:53)
[2017-06-24] MEDS: DOCUSATE SODIUM 100 MG CAP PO ×2 (08:53→21:00)
[2017-06-24] MEDS: PANTOPRAZOLE (EC) 40 MG TAB PO (08:53)
[2017-06-24] MEDS: ENOXAPARIN 40 MG/0.4 ML SYG SC (09:14)
[2017-06-24] MEDS: BALSAM PERU/CASTOR OIL 60 GM TUBE TOP (09:20)
[2017-06-24 15:21] LABS: ADD UMIC YES; UR ASCORBIC ACID NEGATIVE (NEGATIVE); UR BACTERIA FEW /HPF (NONE SEEN); UR BILIRUBIN (Dip) NEGATIVE (NEGATIVE); UR BLOOD (Dip) 3+ mg/dL (NEGATIVE); UR CLARITY CLEAR (CLEAR); UR COLOR STRAW (YELLOW); UR GLUCOSE (Dip) NEGATIVE (NEGATIVE); UR KETONES (Dip) NEGATIVE (NEGATIVE); UR LEUKOCYTE ESTERASE (Dip) 1+ Leu/ul (NEGATIVE); UR NITRITE (Dip) NEGATIVE (NEGATIVE); UR RBC 0 /HPF (0-5); UR SPECIFIC GRAVITY (Dip) 1.003 (1.003-1.030); UR TOTAL PROTEIN (Dip) NEGATIVE (NEGATIVE); UR UROBILINOGEN (Dip) NEGATIVE (NEGATIVE); UR WBC 12 /HPF (0-5)
[2017-06-24] MEDS: FLUCONAZOLE 100 MG/NS (PMX) 50 ML IVPB (18:52)
[2017-06-25] MEDS: LEVALBUTEROL (NEB) 0.31 MG/3 ML AMP HHN ×6 (01:27→22:24)
[2017-06-25] MEDS: DEXTROSE 5%-0.45% NACL 1,000 ML IV ×3 (05:25→10:00)
[2017-06-25] MEDS: VANCOMYCIN 750 MG in DEXTROSE 5% 150 ML IVPB ×2 (05:25→16:25)
[2017-06-25] MEDS: LORAZEPAM 0.5 MG TAB PO ×3 (06:00→21:11)
[2017-06-25] MEDS: FUROSEMIDE 20 MG INJ IV ×2 (06:05→18:03)
[2017-06-25 06:59] LABS: ANION GAP 8 (8-16); BLOOD UREA NITROGEN 4 mg/dl (7-20); CALCIUM 9.4 mg/dl (8.4-10.2); CARBON DIOXIDE 27 mmol/L (21-31); CHLORIDE 102 mmol/L (97-110); GLUCOSE 130 mg/dl (70-220); MAGNESIUM 1.4 mg/dl (1.7-2.5); PHOSPHORUS 3.9 mg/dl (2.5-4.9); SODIUM 134 mmol/L (135-144)
[2017-06-25 07:01] LABS: POTASSIUM 2.6 mmol/L (3.5-5.1)
[2017-06-25] MEDS: POTASSIUM CHLORIDE (SR) 20 MEQ TAB PO ×3 (07:53→16:20)
[2017-06-25] MEDS: BISACODYL (EC) 5 MG TAB PO (09:00)
[2017-06-25] MEDS: POLYETHYLENE GLYCOL 17 GM PACKET PO (09:00)
[2017-06-25] MEDS: DOCUSATE SODIUM 100 MG CAP PO ×2 (09:00→20:45)
[2017-06-25] MEDS: BENZONATATE 100 MG CAP PO ×3 (09:11→20:45)
[2017-06-25] MEDS: PANTOPRAZOLE (EC) 40 MG TAB PO (09:11)
[2017-06-25] MEDS: ASPIRIN (EC) 81 MG TAB PO (09:11)
[2017-06-25] MEDS: NYSTATIN SUSP 5 ML CUP PO ×4 (09:11→20:45)
[2017-06-25] MEDS: ATENOLOL 25 MG TAB PO ×2 (09:14→20:51)
[2017-06-25] MEDS: morphine (ER) 15 MG TAB PO ×2 (09:19→20:47)
[2017-06-25] MEDS: ENOXAPARIN 40 MG/0.4 ML SYG SC (09:22)
[2017-06-25] MEDS: BALSAM PERU/CASTOR OIL 60 GM TUBE TOP (09:23)
[2017-06-25] MEDS: GUAIFENESIN/DM 5ML CUP PO (11:49)
[2017-06-25] MEDS: MAGNESIUM SULFATE 2 GM/50 ML 50 ML IVPB (16:19)
[2017-06-25] MEDS: FLUCONAZOLE 100 MG/NS (PMX) 50 ML IVPB (18:02)
[2017-06-26] MEDS: LEVALBUTEROL (NEB) 0.31 MG/3 ML AMP HHN ×3 (02:17→09:23)
[2017-06-26] MEDS: VANCOMYCIN 750 MG in DEXTROSE 5% 150 ML IVPB (03:56)
[2017-06-26] MEDS: LORAZEPAM 0.5 MG TAB PO ×2 (05:29→13:58)
[2017-06-26 06:26] LABS: ANION GAP 9 (8-16); BLOOD UREA NITROGEN 4 mg/dl (7-20); CALCIUM 9.6 mg/dl (8.4-10.2); CARBON DIOXIDE 24 mmol/L (21-31); CHLORIDE 105 mmol/L (97-110); CREATININE 0.46 mg/dl (0.44-1.00); GLUCOSE 125 mg/dl (70-220); POTASSIUM 4.4 mmol/L (3.5-5.1); SODIUM 134 mmol/L (135-144)
[2017-06-26] MEDS: ENOXAPARIN 40 MG/0.4 ML SYG SC (09:00)
[2017-06-26] MEDS: BISACODYL (EC) 5 MG TAB PO (09:00)
[2017-06-26] MEDS: DOCUSATE SODIUM 100 MG CAP PO (09:00)
[2017-06-26] MEDS: NYSTATIN SUSP 5 ML CUP PO ×3 (09:14→18:12)
[2017-06-26] MEDS: BENZONATATE 100 MG CAP PO ×2 (09:15→13:49)
[2017-06-26] MEDS: ASPIRIN (EC) 81 MG TAB PO (09:15)
[2017-06-26] MEDS: ATENOLOL 25 MG TAB PO (09:16)
[2017-06-26] MEDS: PANTOPRAZOLE (EC) 40 MG TAB PO (09:16)
[2017-06-26] MEDS: morphine (ER) 15 MG TAB PO (09:16)
[2017-06-26] MEDS: BALSAM PERU/CASTOR OIL 60 GM TUBE TOP (09:21)
== END 2017-06-26 20:30 | DRG 871 ==
LOC: MS2 06-18 08:20 → TEL 06-14 15:39 → MS2 06-18 08:21 → E/R 18:34 → PP2 22:13 → MS2 06-17 18:37
PROC: 30233N1 Transfusion of Nonautologous Red Blood Cells into Peripheral Vein, Percutaneous Approach (ICD-10-PCS; 2017-06-12)
PROC: 02HV33Z Insertion of Infusion Device into Superior Vena Cava, Percutaneous Approach (ICD-10-PCS; principal; 2017-06-13)
DX: A41.9 Sepsis, unspecified organism (principal); J18.9 Pneumonia, unspecified organism; G93.41 Metabolic encephalopathy; R64 Cachexia; C79.89 Secondary malignant neoplasm of other specified sites; B37.0 Candidal stomatitis; Z93.6 Other artificial openings of urinary tract status; N73.5 Female pelvic peritonitis, unspecified; N39.0 Urinary tract infection, site not specified; J21.9 Acute bronchiolitis, unspecified; C54.1 Malignant neoplasm of endometrium; D64.9 Anemia, unspecified; R65.20 Severe sepsis without septic shock; Z93.3 Colostomy status; B95.2 Enterococcus as the cause of diseases classified elsewhere; Z16.21 Resistance to vancomycin; I10 Essential (primary) hypertension; K21.9 Gastro-esophageal reflux disease without esophagitis
CPT/HCPCS: 36430; 36569; 71045; 71250; 74176; 74177; 76775; 76937; 80048; 80053; 80202; 81001; 82150; 82607; 82728; 82746; 83010; 83540; 83605; 83615; 83690; 83735; 84100; 84132; 84443; 84484; 85025; 85045; 85610; 85730; 86850; 86900; 86901; 86920; 87040; 87086; 93005; 93306; 94640; 94664; 96361; 96374; 96375; 97163; 97530; 99291-25; J1940